=== PATIENT | female | born 1990 | race Caucasian/White ===

== ENCOUNTER 2021-11-29 10:52 | Inpatient (IN) ==
[2021-11-29] MEDS ORDERED: OXYTOCIN 10 UNITS/ML 10ML VIAL ONE ×10 (11:16→13:35)
[2021-11-29] MEDS ORDERED: ONDANSETRON INJ 2 MG/ML 2 ML VIAL ONE (11:16)
--- NOTE | 2021-11-29 11:29 | Anesthesiology Consultation ---
Date of Service November 29, 2021 Assessment & Plan (1) Encounter for pre-operative examination: Chart Review Chart Review: Acceptable Risk for Surgery and Patient NOT seen in Pre Admission Testing Consults Requested none ASA [id number] Proposed Anesthesia Anesthesia Type: Spinal Risk / Benefits Reviewed With: PT / POA / Parent / Guardian, Accepts Plan and Informed Consent Obtained History Surgery Operation Date: 11/29/21 11:30 Proposed Procedures p Section in OR - Ozzy Orlin Saenz MD Height/Weight Height: 5 ft 6 in Weight: 108.862 kg Allergies Allergy/AdvReac Type Severity Reaction Status Date / Time No Known Allergies Allergy Verified 05/27/21 14:32 Medications Home Medications Medication Instructions Recorded Confirmed Last Taken prenat.vits,mt,van-ybxy-fgjwp 1 tab PO DAILY 05/25/21 05/27/21 Unknown rizatriptan 10 mg disintegrating 10 mg PO Q2H PRN #20 tab 08/23/21 08/23/21 Unknown tablet (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 Past Family History Family History Grandfather (Paternal) Diabetes Grandmother (Paternal) Diabetes Breast cancer Father Myocardial infarction Other Cervical cancer Thyroid disorder Denies family history of Ovarian cancer Prostate cancer Colorectal cancer Past Surgical History Surgical History Hx of hand surgery Hx of LASIK S/P tooth extraction Past Anesthesia History No Hx of Anesthesia Complications History of PONV No Hx of PONV Social History Smoking Status: Never smoker Hx Alcohol Use: No Hx Substance Use: No Review of Systems Patient denies history of abnormal bleeding or bleeding disorder. Patient denies active use of anticoagulants other than low dose aspirin. Patient denies numbness, tingling or weakness in lower extremities. Physical Exam Vital Signs Last Vital Signs Pulse 108 H 11/29/21 11:05 BP 127/74 11/29/21 11:05 Constitutional not obese (gravid ) ENMT Mouth: no TMJ abnormality and oral opening not small Thyromental Distance: > or= 3.5 Finger Breadths Mallampati Class: II Neck normal visual inspection; neck extension not limited Respiratory normal respiratory effort Auscultation: lungs clear to auscultation bilaterally Cardiovascular Rate/Rhythm: regular rate and regular rhythm Heart Sounds: no murmur Neurologic moves all extremities Psychiatric Orientation: alert and oriented x 3
[2021-11-29] MEDS ORDERED: CITRIC ACID/SODIUM CITRATE 15 ML UDC PO SCH (11:30)
[2021-11-29] MEDS ORDERED: cefOXitin 2,000 MG in DEXTROSE 5% 50 ML IV SCH (11:30)
--- NOTE | 2021-11-29 11:33 | History and Physical Report ---
DATE OF ADMISSION: 11/29/2021 CHIEF COMPLAINT: Abdominal contractions, breech presentation. HISTORY OF PRESENT ILLNESS: The patient is a 31-year-old 2, para 1. Her general health is g ood. She has had an uneventful course. Her due date is 12/22/2021, was confirmed by first trimester ultrasound. Her first delivery was in 2016, female, 8 pounds 1 ounce at 38 weeks' gestatio n, spontaneous vaginal delivery. She called the office, she was having some cramps and irritability, and this has been going on for about the last week. When she was seen in the office, pelvic exam rev ealed a compound breech presentation. Cervix was about 8 cm dilated. She then had a bedside ultraso und done on maternity and this confirmed the vertex in the left upper quadrant. We were able to see the spine, the head, the falx and then in the pelvis, we saw a compound breech presentation. Present ly being scheduled for a stat low segment section. ALLERGIES: No known drug allergies. PAST SURGICAL HISTORY: She had a wisdom teeth removed and she had surgery for a dog bite in her righ t hand. PAST MEDICAL HISTORY: No history of rheumatic fever, heart disease, heart murmur, diabetes, or tuber culosis. SOCIAL HISTORY: No smoking, no alcohol intake. Works at [employer]. FAMILY HISTORY: She has a girl, in good health. Mom is 51, in good health. Father at age 48, complications of smoking [place], heart disease. No brothers or sisters. REVIEW OF SYSTEMS: HEAD: No symptoms of frequent or severe headaches. EYES: No symptoms of blurred vision or double vision. EARS: No symptoms of frequent ear infection or difficulty hearing. PHYSICAL EXAMINATION: GENERAL: Well-developed, well-nourished 31-year-old white female, alert, oriented x3, cooperative, i n no acute distress, appeared her stated age. EYES: Conjunctivae are pink. Sclerae white, no evidence of jaundice. EARS: Normal light reflex bilaterally. NOSE: Normal mucosa. Septum is midline. There were no polyps. THROAT: No erythema or evidence of infection. Teeth are in good state of repair. HEAD: Normocephalic, normal distribution of hair. NECK: Supple. Trachea midline. Thyroid is not enlarged. There is no adenopathy appreciated. Both carotids are of good intensity. CHEST: Clear to auscultation and percussion. ABDOMEN: Term size fundus, head ballottable in the left upper quadrant. PELVIC: Cervix 7-8 cm. Compound breech presentation, membranes intact. MUSCULOSKELETAL: Revealed no calf tenderness. IMPRESSIONS OF THIS CASE: Intrauterine , labor, compound breech presentation. Job ID: [id number]
[2021-11-29 11:58] LABS: Basophils # (auto) 0.03 K/uL (0-0.2); Basophils % (auto) 0.2 %; Eosinophils % (auto) 0.8 %; Hematocrit (blood only) 31.6 % (37-47); Hemoglobin 10.7 g/dL (12.0-16.0); Immature Granulocytes % (auto) 0.8 %; Lymphocytes # (auto) 2.24 K/uL (1.2-3.4); Lymphocytes % (auto) 17.7 %; Mean Corpuscular Hemoglobin 28.2 pg (25-34); Mean Corpuscular Hgb Conc 33.9 g/dL (32-36); Mean Corpuscular Volume 83.4 fL (80-100); Mean Platelet Volume 9.2 fL (7.4-10.4); Monocytes # (auto) 0.92 K/uL (0.11-0.59); Monocytes % (auto) 7.3 %; Neutrophils # (auto) 9.29 K/uL (1.4-6.5); Neutrophils % (auto) 73.2 %; Platelet Count 229 K/uL (130-400); RDW Coefficient of Variation 14.3 % (11.5-14.5); RDW Standard Deviation 43.5 fL (36.4-46.3); Red Blood Count 3.79 M/uL (4.2-5.4); White Blood Count 12.68 K/uL (4.8-10.8)
[2021-11-29] MEDS ORDERED: fentaNYL citrate 100 MCG/2 ML VIAL ONE (12:16)
[2021-11-29] MEDS ORDERED: MoRPHine SULFATE PF 1 MG/ML 10 ML AMP/VIAL ONE (12:16)
[2021-11-29] MEDS ORDERED: NALOXONE HCL 1 MG in SODIUM CHLORIDE 0.9% 1000ML 1,000 ML IV PRN (12:33)
[2021-11-29] MEDS ORDERED: KETOROLAC 30 MG/ML VIAL IV PRN (12:33)
[2021-11-29] MEDS ORDERED: MoRPHine SULFATE PF 1 MG/ML 10 ML AMP/VIAL INT SPINAL ONE (12:33)
[2021-11-29] MEDS ORDERED: diphenhydrAMINE 50 MG/ML VIAL IV PRN (12:33)
[2021-11-29] MEDS ORDERED: ONDANSETRON INJ 2 MG/ML 2 ML VIAL IV PRN (12:33)
[2021-11-29] MEDS ORDERED: NALBUPHINE HCL INJ 10 MG/ML AMP IV PRN (12:33)
[2021-11-29] MEDS ORDERED: MEPERIDINE HCL 25 MG/ML CARP/VIAL IV PRN (12:33)
[2021-11-29] MEDS ORDERED: ePHEDrine sulfate 50 MG/ML AMP IV PRN (12:33)
[2021-11-29] MEDS ORDERED: NALOXONE HCL 0.4 MG/1 ML VIAL/CARP IV PRN (12:33)
[2021-11-29] MEDS ORDERED: NALOXONE HCL 0.08 MG in SYRINGE 1.8 ML IV PRN (12:33)
[2021-11-29] MEDS ORDERED: LACTATED RINGER'S 500 ML IV PRN (12:33)
[2021-11-29] MEDS ORDERED: NO NARCOTICS OR SEDATIVES SCH (12:45)
[2021-11-29] MEDS ORDERED: DC INTRASPINAL MORPHINE SCH (12:45)
[2021-11-29] MEDS ORDERED: SODIUM CHLORIDE 0.9% 1000ML 1,000 ML IV SCH (12:45)
[2021-11-29] MEDS ORDERED: OXYTOCIN 10 UNITS/ML 10ML VIAL IM ONE (13:18)
[2021-11-29] MEDS ORDERED: KETOROLAC 30 MG/ML VIAL ONE (13:47)
[2021-11-29] MEDS ORDERED: BENZOCAINE 20% AER SPR 82.5 GM CAN EXT PRN (13:54)
[2021-11-29] MEDS ORDERED: HYDROCORTISONE ACETATE 25 MG SUPP PR PRN (13:54)
[2021-11-29] MEDS ORDERED: SENNA 8.6 MG TAB PO PRN (13:54)
[2021-11-29] MEDS ORDERED: SUPERCREAM 0.870% 15 GM JAR EXT PRN (13:54)
[2021-11-29] MEDS ORDERED: MAGNESIUM HYDROXIDE SUSP 30 ML UDC PO PRN (13:54)
--- NOTE | 2021-11-29 13:54 | Post Operative Brief Note ---
Immediate Post Op Note v1 Date of Surgery November 29, 2021 Pre & Post Diagnosis Operation Date: 11/29/21 11:30 Pre-Op Diagnosis: Low Transverse Section Post-Op Diagnosis: Low Transverse Section, Live of female at 1256 I identified the patient and participated in the time-out.: Yes Procedure Operation Date: 11/29/21 11:30 Actual Procedures p Low Transverse Section, Live of female at 1256(Not Applicable) - Ozzy Saenz MD Surgeon Ozzy Saenz MD Suede Cleaner nurse Estimated Blood Loss 600 Findings Consistent with Post-Op Diagnosis Drains Martinez Catheter (Urine output measured by anesthesia) Anesthesia Type Spinal Disposition Disposition: Recovery Room
[2021-11-29] MEDS ORDERED: LACTATED RINGER'S 1,000 ML IV SCH (14:00)
--- NOTE | 2021-11-29 14:31 | Operative Report (OR) ---
DATE OF PROCEDURE: 11/29/2021. PROCEDURE: Primary low segment section. INDICATIONS FOR SURGERY: Intrauterine , compound Breech presentation, labor. PREOPERATIVE DIAGNOSES: Active labor, cervix 8 cm dilated, compound breech presentation. POSTOPERATIVE DIAGNOSES: Active labor, cervix 8 centimeters dilated, compound breech presentation. Breech presentation confirmed, delivered live female . SURGEON: Hi Saenz MD. ROLLER MAKER: production assistant. ESTIMATED BLOOD LOSS: 600 mL. ANESTHESIA: Spinal. OPERATIVE FINDING AND PROCEDURE: The patient was brought to the OR table, correctly identified by ty smith and conversation. Spinal anesthesia was administered. A catheter was inserted aseptically in the bladder, connected to gravity drainage. Compression stockings were applied. Lower abdomen was p ainted with an alcohol based sterilizing solution, was allowed to dry for 3 minutes and then draped i n the usual sterile fashion. Adequacy of the spinal was now tested and found to be good. A Pfannens tiel incision was made and carried down to the anterior fascia by sharp dissection. Hemostasis was s ecured by electrocauterization. Fascia was incised transversely the underlying muscle by blunt and sharp dissection. Recti muscles were in the midline, exposing the peritoneum, wh ich was carefully raised and entered. An incision was made above the vesicouterine fold. The bladder was undermined bluntly, pushed out of the operative field. Lower uterine segment was then scored with a knife and then entered bluntly wi th the scissors. Clear amniotic fluid was seen at this time. I reached in and grabbed the heels of b oth feet and then did a breech extraction by extracting the feet, then the buttocks, then the torso, then I reduced each arm and then the head was delivered without difficulty. Infant breathing, cried spontaneously, was attended to by the cleaning and maintenance worker who was present and scrubbed at the time of [facility] ry. Cord was stripped and then clamped and cut. Cord blood was taken. Placenta was removed manuall y. The uterus, tubes, and ovaries were brought out through the incision. The myometrial defect was appr oximated in layers. The muscular defect was approximated with a continuous interlocking suture of he brittney chromic. Then, the endopelvic fascial defect was approximated over this with a horizontal suture of heavy Vicryl and then about 4 [id number]-cp-[id number] sutures of Vicryl was used to further approximate t he lower uterine segment and create good hemostasis. Following this, the peritoneal edges were maria luisa red with a 3-0 chromic and this restored the integrity of the vesicouterine fold. Tubes and ovaries w ere inspected and found to be normal. Pelvis was cleansed of all blood clots and debris. Uterus, tu bes, and ovaries were reinserted into the abdomen. A careful anatomical approximation of the anterior abdominal wall was performed. The perineum was cl osed with a mattress suture of chromic catgut. Recti muscles were approximated with interrupted figu re-of-eight suture chromic catgut. Fascia was closed with continuous interlocking suture of Vicryl o n each side tied in the midline. Subcutaneous was approximated with running plain and skin edges wer e approximated with staple clips. Job ID: [id number]
--- NOTE | 2021-11-29 14:33 | Anesthesiology Progress Note ---
Date of Service November 29, 2021 Anesthesia Post Procedure Vital Signs Vital Signs: Pulse BP Pulse Ox 11/29/21 14:27 73 100 11/29/21 14:26 71 105/61 11/29/21 14:22 70 99 11/29/21 14:17 73 100 11/29/21 14:15 75 116/58 L 11/29/21 14:12 72 100 11/29/21 14:07 69 100 11/29/21 14:05 66 124/64 11/29/21 14:02 69 121/61 99 11/29/21 11:05 108 H 127/74 Transfer of Care Handoff Completed per policy Notes Mental Status: alert / awake / arousable and participated in evaluation Nausea / Vomiting: adequately controlled Pain: adequately controlled Airway Patency, RR, SpO2: stable & adequate BP & HR: stable & adequate Hydration State: stable & adequate Neuraxial Anesthesia: was administered and sensory block is resolving Anesthetic Complications: no major complications apparent and Pt Satisfied with anesthetic care
[2021-11-29] MEDS: OXYTOCIN 20 UNITS in LACTATED RINGER'S 1,000 ML IV SCH (16:54)
[2021-11-29] MEDS: SIMETHICONE 80 MG CHEW PO SCH (20:01)
[2021-11-29] MEDS: DOCUSATE SODIUM 100 MG CAP PO SCH (20:01)
[2021-11-30] MEDS: OXYTOCIN 20 UNITS in LACTATED RINGER'S 1,000 ML IV SCH (01:24)
[2021-11-30] MEDS ORDERED: ZOLPIDEM TARTRATE 5 MG TAB PO PRN (06:33)
[2021-11-30] MEDS ORDERED: MEPERIDINE HCL 50 MG/ML CARP IV PRN (06:33)
[2021-11-30] MEDS ORDERED: diphenhydrAMINE 50 MG/ML VIAL IV PRN (06:33)
[2021-11-30] MEDS ORDERED: diphenhydrAMINE Capsule 25 MG CAP PO PRN (06:33)
[2021-11-30] MEDS ORDERED: KETOROLAC 30 MG/ML VIAL IV PRN (06:33)
[2021-11-30] MEDS ORDERED: ONDANSETRON INJ 2 MG/ML 2 ML VIAL IV PRN (06:33)
[2021-11-30] MEDS ORDERED: PROMETHAZINE HCL 25 MG in SODIUM CHLORIDE 0.9% 50 ML IV PRN (06:33)
[2021-11-30] MEDS: oxyCODONE/ACETAMINOPHEN 5mg/325mg TAB PO PRN ×4 (06:44→21:39)
[2021-11-30] MEDS: IBUPROFEN 600 MG TAB PO PRN ×4 (06:44→21:39)
[2021-11-30 06:56] LABS: Hemoglobin 9.3 g/dL (12.0-16.0); Mean Corpuscular Hemoglobin 28.1 pg (25-34); Mean Corpuscular Hgb Conc 33.2 g/dL (32-36); Mean Corpuscular Volume 84.6 fL (80-100); Mean Platelet Volume 9.3 fL (7.4-10.4); Platelet Count 218 K/uL (130-400); RDW Coefficient of Variation 14.5 % (11.5-14.5); RDW Standard Deviation 44.9 fL (36.4-46.3); Red Blood Count 3.31 M/uL (4.2-5.4)
[2021-11-30 07:23] LABS: Basophils # (auto) 0.01 K/uL (0-0.2); Basophils % (auto) 0.1 %; Eosinophils # (auto) 0.16 K/uL (0-0.5); Eosinophils % (auto) 1.5 %; Immature Granulocytes # (auto) 0.04 K/uL (0.00-0.02); Immature Granulocytes % (auto) 0.4 %; Lymphocytes # (auto) 1.94 K/uL (1.2-3.4); Lymphocytes % (auto) 17.6 %; Monocytes # (auto) 1.13 K/uL (0.11-0.59); Monocytes % (auto) 10.3 %; Neutrophils # (auto) 7.72 K/uL (1.4-6.5); Neutrophils % (auto) 70.1 %
--- NOTE | 2021-11-30 08:39 | Obstetrical Progress Note ---
Date of Service November 30, 2021 Assessment & Plan Admission and Anticipated Discharge Date Admission Date: November 29, 2021 Subjective abdomen soft and non tender bandage removed incision is clean and dry no calf tenderness ambulating well passing flatus vaginal bleeding scant hgb 9.3 Results & Data ([facility]) Vital Signs (Past 12 Hours) Vital Signs Temp Pulse Resp BP Pulse Ox 11/30/21 07:30 36.8 C 75 20 106/65 96 11/30/21 05:30 18 96 11/30/21 04:30 18 95 11/30/21 04:05 36.6 C 73 18 96/62 L 98 11/30/21 03:30 18 96 11/30/21 02:30 18 94 11/30/21 01:30 18 94 11/30/21 00:30 16 96 11/29/21 23:24 18 96 11/29/21 23:00 36.9 C 70 18 106/67 11/29/21 22:30 16 97 11/29/21 21:39 18 94 11/29/21 20:45 18 96
[2021-11-30] MEDS ORDERED: DIPHTHERIA/TETANUS/PERTUSSIS 0.5 ML SYR/VIAL IM ONE (09:00)
[2021-11-30] MEDS: PRENATAL VITAMIN 1 TAB PO SCH (09:02)
[2021-11-30] MEDS: SIMETHICONE 80 MG CHEW PO SCH ×4 (09:02→20:21)
[2021-11-30] MEDS: FERROUS SULFATE 325 MG TAB PO SCH (09:02)
[2021-11-30] MEDS: DOCUSATE SODIUM 100 MG CAP PO SCH ×2 (09:02→20:21)
[2021-11-30] MEDS: SERTRALINE HCL 100 MG TABLET PO SCH (09:06)
[2021-11-30] MEDS ORDERED: bisacodyL 5 MG TABEC PO SCH (20:00)
[2021-12-01] MEDS: IBUPROFEN 600 MG TAB PO PRN ×4 (02:21→20:58)
[2021-12-01] MEDS: oxyCODONE/ACETAMINOPHEN 5mg/325mg TAB PO PRN ×4 (02:21→20:57)
[2021-12-01 07:00] LABS: Hematocrit (blood only) 28.1 % (37-47); Hemoglobin 9.5 g/dL (12.0-16.0)
[2021-12-01] MEDS: PRENATAL VITAMIN 1 TAB PO SCH (08:08)
[2021-12-01] MEDS: SERTRALINE HCL 100 MG TABLET PO SCH (08:09)
[2021-12-01] MEDS: SIMETHICONE 80 MG CHEW PO SCH ×4 (08:09→20:57)
[2021-12-01] MEDS: FERROUS SULFATE 325 MG TAB PO SCH (08:09)
[2021-12-01] MEDS: DOCUSATE SODIUM 100 MG CAP PO SCH ×2 (08:09→20:57)
--- NOTE | 2021-12-01 09:27 | Obstetrical Progress Note ---
Date of Service December 01, 2021 Assessment & Plan Admission and Anticipated Discharge Date Admission Date: November 29, 2021 Subjective abdomen soft and non tender no calf tenderness incision is clean and dry ambulating well vaginal bleeding scant hgb 9.5 Results & Data ([facility]) Vital Signs (Past 12 Hours) Vital Signs Temp Pulse Resp BP Pulse Ox 12/01/21 07:32 36.5 C 80 16 107/67 95 11/30/21 23:45 37.2 C 85 18 107/64
[2021-12-01] MEDS ORDERED: bisacodyL 10 MG SUPP PR PRN (13:55)
[2021-12-02 00:06] VITALS: TEMP 98.1
[2021-12-02] MEDS: IBUPROFEN 600 MG TAB PO PRN ×2 (01:09→08:08)
[2021-12-02] MEDS: oxyCODONE/ACETAMINOPHEN 5mg/325mg TAB PO PRN ×2 (01:09→08:07)
[2021-12-02] MEDS: SIMETHICONE 80 MG CHEW PO SCH (08:07)
[2021-12-02] MEDS: PRENATAL VITAMIN 1 TAB PO SCH (08:07)
[2021-12-02] MEDS: FERROUS SULFATE 325 MG TAB PO SCH (08:07)
[2021-12-02] MEDS: DOCUSATE SODIUM 100 MG CAP PO SCH (08:07)
[2021-12-02 08:32] VITALS: BP 105/72; O2SAT 97
--- NOTE | 2021-12-02 08:58 | Obstetrical Progress Note ---
Date of Service December 02, 2021 Assessment & Plan Admission and Anticipated Discharge Date Admission Date: November 29, 2021 Subjective abdomen soft and non tender incision is clean and dry no calf tenderness ambulating well vaginal bleeding scant hgb 9.6 Results & Data ([facility]) Vital Signs (Past 12 Hours) Vital Signs Temp Pulse Resp BP Pulse Ox 12/02/21 08:15 36.7 C 79 16 105/72 97 12/01/21 23:25 36.7 C 77 16 110/72 96
[2021-12-02 09:10] VITALS: PULSE 75
--- NOTE | 2021-12-02 10:04 | Discharge Summary (DS) ---
DATE OF DISCHARGE: 12/02/2021. HOSPITAL COURSE: The patient is a 3, para 2, followed in our office for care and medellin, came for a routine office visit at about 36 weeks 4 days since she has been having cramps for the past several days. They were erratic. An exam in the office revealed her cervix to be 8 cm dila roshni. Compound breech presentation, who went to the hospital where an urgent primary low segment cesa rean section was performed. She received prophylactic antibiotics and then under spinal anesthesia, she underwent primary low segment section with a compound breech extraction. Estimated bloo d loss at that time was about 600 mL. Postoperatively, she did well. Bowel sounds returned within 24 hours. She was ambulating well within 24 hours. Her preoperative hemoglobin was 10.7, hematocrit 3 1.6. Postoperatively, hemoglobin dropped to 9.5, hematocrit 28.1. At the time of discharge, she was ambulating well. She had been afebrile her entire postoperative st ay. Vaginal bleeding was scant. Incision was clean and dry, and she was given prescriptions for Per cocet and Motrin for pain control and instructed to call the office if she had a temperature over 100 or any heavy bleeding, and to return in a week for removal of rudolph. Job ID: [id number]
== END 2021-12-02 11:50 | disposition home or self-care (01) | DRG 788 ==
LOC: 4S1 10:52 → 4S2 16:05
DX: O32.1XX0 Maternal care for breech presentation, not applicable or unspecified; Z83.3 Family history of diabetes mellitus; Z37.0 Single live birth; Z80.3 Family history of malignant neoplasm of breast; Z3A.36 36 weeks gestation of pregnancy